=== PATIENT | female | born 1965 | race Caucasian/White ===

== ENCOUNTER 2017-10-29 06:09 | Outpatient (CLI) | payer OTHER ==
[~2017-10-29] VITALS: Ht 167.6 cm; Wt 113.6 kg
--- NOTE | ~2017-10-29 | HEMODYNAMI ---
PATIENT:ABI JEAN MEDICAL RECORD: [id number] : 67 LOCATION:[facility] ADMISSION DATE: 10/29/17 Generatedon:10/29/201710:46 Patient name: ABI JEAN Patient #: [id number] SSN: : 1965 Date of study: 10/29/2017 Page: Of Hemodynamic Procedure Report Patient Data Patient Demographics Procedure consent was obtained First Name: ABI Gender: Female Last Name: MIRANDA : 1965 Patient #: [id number] Age: 52 year(s) Race: Unknown Additional ID: [id number] Contact details Address: [facility] [address] State: [place] City: [place] Zip code: [address] Past Medical History Allergies Allergen Reaction Date Comments Reported Other allergy 10/29/2017 shellfish,wellbutrin. Admission Admission Data Admission Date: 10/29/2017 Admission Time: 6:09 Admit Source: Other Lab Results Lab Result Date: 10/29/2017 Lab Result Time: 6:50 Biochemistry Name Units Result Min Max BUN mg/dl 10 --(-*--)-- 7 18 Creatinine mg/dl 0.7 --(*---)-- 0.6 1.3 CBC Name Units Result Min Max Hematocrit % 41.1 -*(----)-- 42 54 Hemoglobin g/dl 13.7 --(*---)-- 13.5 17.5 Procedure Procedure Types Cath Procedure Diagnostic Procedure LHC LHC w/Coronaries Miscellaneous Procedures Moderate Sedation up to 15 minutes Procedure Description Procedure Date Procedure Date: 10/29/2017 Procedure Start Time: 8:18 Procedure End Time: 8:38 Procedure Staff Name Function Tom Zendejas RN Form Setter Supervisor Tahir Preciado RN Nurse Jay Cooley MD Performing Physician Denis Hernandez RT Scrub Denis Hernandez RT Monitor Procedure Data Cath Procedure Fluoroscopy Diagnostic fluoroscopy Total fluoroscopy Time: 2.1 time: 2.1 min min Diagnostic fluoroscopy Total fluoroscopy dose: 682 dose: 682 mGy mGy Contrast Material Contrast Material Type Amount (ml) Isovue 300 64 Entry Location Entry Primary Successful Side Size Upsize Upsize Entry Closure Guerrero ccessful Closure Location (Fr) 1 (Fr) 2 (Fr) Remarks Device Remarks Radial Right 6 Fr Mechanical artery Short Compression Estimated blood loss: 5 ml Diagnostic catheters Device Type Used For End Catheter Placement DIAGNOSTIC [place] 110cm 5 Procedure Fr catheter ([id number]) Procedure Complications No complications Procedure Medications Medication Administration Route Dosage Oxygen NC 2 l/min Lidocaine 2% added to field 20 Heparin Flush Bag added to field 2 bags (1000units/500ml NS) 0.9% NaCl I.V. 100 ml/hr Versed I.V. 1 mg Fentanyl I.V. 50 mcg Versed I.V. 1 mg Fentanyl I.V. 50 mcg Versed I.V. 1 mg Fentanyl I.V. 50 mcg Radial Cocktail I.A. 1 syringe (Verapomil 2mg/Nitro 400mcg/Heparin 1500units) Versed I.V. 1 mg Fentanyl I.V. 50 mcg Hemodynamics Rest HGB: 13.7 (g/dl) Heart Rate: 57 (bpm) Pressure Samples Time Site Value (mmHg) Purpose Heart Use Rate(bpm) 8:26 LV 148/-4,18 Snapshot 70 Gradients Valve Time Site Site Mean SEP/DFP Peak To Heart Use 1 2 (mmHg) (sec/min) Peak Rate (mmHg) (bpm) Aortic 8:27 LV AO 85 Snapshots Pre Cath Intra NCS Post Cath Vital Signs Time Heart Resp SPO2 etCO2 NIBP (mmHg) Rhythm Pain Sedation Rate (ipm) (%) (mmHg) Status Level (bpm) 8:06:58 56 15 98 33.4 177/97(151) NSR 0 (11) 10(A) , No pain 8:11:51 59 17 94 41 161/85(129) NSR 0 (11) 10(A) , No pain 8:16:38 66 16 97 34.2 151/87(116) NSR 0 (11) 9(A) , No pain 8:21:37 69 15 96 30.4 Measuring NSR 0 (11) 9(A) , No pain 8:22:09 67 15 98 33.5 134/95(119) NSR 0 (11) 9(A) , No pain 8:26:52 78 15 95 36.5 124/84(107) NSR 0 (11) 9(A) , No pain 8:31:33 78 16 95 37.3 136/90(123) NSR 0 (11) 9(A) , No pain 8:36:17 74 15 98 38 143/87(115) NSR 0 (11) 10(A) , No pain Medications Time Medication Route Dose Verified Delivered Reason Notes Effectiveness by by 8:08:57 Oxygen NC 2 l/min Jay Buffie used for Yasir Preciado RN procedure 8:09:04 Lidocaine 2% added 20ml Jay Jay for local to vial Yasir Cooley MD anesthetic field 8:09:12 Heparin Flush added 2 bags Jay Jay used for Bag to Yasir Cooley MD procedure (1000units/500ml field NS) 8:09:22 0.9% NaCl I.V. 100 Jay Buffie Per physician ml/hr Yasir Preciado RN 8:12:10 Versed I.V. 1 mg Jya Buffie for sedation Yasir Preciado RN 8:12:17 Fentanyl I.V. 50 mcg Jay Buffie for sedation Yasir Preciado RN 8:14:31 Versed I.V. 1 mg Jay Buffie for sedation Yasir Preciado RN 8:14:34 Fentanyl I.V. 50 mcg Jay Buffie for sedation Yasir Preciado RN 8:19:03 Versed I.V. 1 mg Jay Buffie for sedation Yasir Preciado RN 8:19:07 Fentanyl I.V. 50 mcg Jay Buffie for sedation Yasir Preciado RN 8:25:03 Radial Cocktail I.A. 1 Jay Buffie for (Verapomil syringe Yasir Preciado RN anticoagulation 2mg/Nitro 400mcg/Hepari 8:27:06 Versed I.V. 1 mg Jay Buffie for sedation Yasir Preciado RN 8:27:10 Fentanyl I.V. 50 mcg Jay Buffie for sedation Yasir Preciado RN Procedure Log Time Note 7:48:03 Informed consent obtained and on chart 7:48:20 Admit Source: Other 7:48:46 Diagnostic Cath status Elective 7:49:14 Tom Zendejas RN sent for patient. Start room use. 7:49:15 Time tracking: Regular hours 7:49:18 Plan of Care:Hemodynamics will remain stable., Cardiac rhythm will remain stable., Comfort level will be maintained., Respiratory function will remain adequate., Patient/ family verbilizes understanding of procedure., Procedure tolerated without complication., Recovers from procedure without complications.. 7:49:33 H&P Date Dictated: 10/07/2017 Within 30 days and on chart., H&P Addendum completed by physician on day of procedure. (MUST COMPLETE FOR ALL OUTPATIENTS). 7:56:31 Patient received from Pre/Post Procedure Room to CCL 1 Alert and oriented. Tansferred to table in Supine position. 7:56:33 Warm blankets applied, and bella hugger turned on for patient comfort. 7:56:34 Correct patient and procedure confirmed by team. 7:56:36 ECG and BP/O2 sat monitors applied to patient. 7:56:49 Pre-op teaching completed and patient verbalized understanding. 7:56:49 Pre-procedure instructions explained to patient. 7:56:50 Family in waiting room. 7:56:52 Patient NPO since Midnight. 7:57:30 Patient allergic to Other allergyshellfish,wellbutrin. 7:57:32 Is the patient allergic to Iodine/contrast media? Yes. 7:57:34 Was the patient premedicated? Yes 8:01:24 Is patient on blood thinner?No 8:01:26 Patient diabetic? No. 8:01:37 Patient not . Patient has had hysterectomy. 8:01:39 Previous problem with sedation/anesthesia? No ? 8:01:41 Snore? Yes 8:01:42 Sleep apnea? No 8:01:43 Opens mouth fully? Yes 8:01:43 Deviated septum? No 8:01:44 Sticks out tongue? Yes 8:01:46 Airway obstruction? No ? 8:01:47 Dentures? No ? 8:01:51 Modified Rm's test Ulnar < 7 seconds 8:01:53 Patient pain scale 0/10 ?. 8:02:02 IV patent on arrival in left hand with 0.9% NaCl at [facility]. 8:03:15 Lab Result : Hemoglobin 13.7 g/dl 8:03:15 Lab Result : Hematocrit 41.1 % 8:03:15 Lab Result : BUN 10 mg/dl 8:03:15 Lab Result : Creatinine 0.7 mg/dl 8:03:19 Lab results completed and on chart. 8:05:55 Vital chart was started 8:05:56 Baseline sample Acquired. 8:06:03 Baseline sample Acquired. 8:06:06 Rhythm: sinus rhythm 8:06:19 Full Disclosure recording started 8:07:21 Right Radial & Right Groin area was prepped with chlora-prep and draped in sterile fashion 8:07:22 Alarms reviewed by R. N. 8:07:23 Sharps counted by scrub and verified by R.N. 8:07:25 Use device set Radial Dx or PCI 8:07:29 MBrace Wrist Support ([id number]) opened to sterile field. 8:07:29 NEEDLE Cook 21G 4cm Radial ([id number]) opened to sterile field. 8:07:30 Tegaderm 4 x 4 (1626W) opened to sterile field. 8:07:31 ACIST Hand Control (62014) opened to sterile field. 8:07:31 ACIST Manifold (48234) opened to sterile field. 8:07:35 ACIST Syringe (74992) opened to sterile field. 8:07:36 Bag Decanter (2002S) opened to sterile field. 8:07:36 Medline Cath Pack ([id number]) opened to sterile field. 8:07:38 DIAGNOSTIC WIRE .035 260cm J wire (953005) opened to sterile field. 8:07:38 SHEATH 6FR Slender ([id number]) opened to sterile field. 8:08:20 Physician arrived 8:08:22 --------ALL STOP TIME OUT------ 8:08:23 Final Timeout: patient, procedure, and site verified with staff and physician. All members of the team are in agreement. 8:08:26 Right Radial & Right Groin site verified by team. 8:08:28 Physical assessment completed. ASA score P 2 - A patient with mild systemic disease as per Jay Cooley MD. 8:08:31 Sedation plan: IV Moderate Sedation Medication:Versed, Fentanyl 8:08:57 Oxygen 2 l/min NC was administered by Tahir Preciado RN; used for procedure; 8:09:04 Lidocaine 2% 20ml vial added to field was administered by Jay Cooley MD; for local anesthetic; 8:09:12 Heparin Flush Bag (1000units/500ml NS) 2 bags added to field was administered by Jay Cooley MD; used for procedure; 8::22 0.9% NaCl 100 ml/hr I.V. was administered by Tahir Preciado RN; Per physician; 8:12:10 Versed 1 mg I.V. was administered by Tahir Preciado RN; for sedation; 8:12:17 Fentanyl 50 mcg I.V. was administered by Tahir Preciado RN; for sedation; 8:12:38 Zero performed for pressure channel P1 8:12:41 Zero performed for pressure channel P1 8:12:49 Zero performed for pressure channel P1 8:14:31 Versed 1 mg I.V. was administered by Tahir Preciado RN; for sedation; 8:14:34 Fentanyl 50 mcg I.V. was administered by Tahir Preciado RN; for sedation; 8:18:30 Procedure started. 8:18:34 Local anesthetic to right radial artery with Lidocaine 2% by Jay Cooley MD.INITIAL ACCESS ONLY 8:18:53 A 6 Fr Short sheath was inserted into the Right Radial artery 8:19:03 Versed 1 mg I.V. was administered by Tahir Preciado RN; for sedation; 8:19:07 Fentanyl 50 mcg I.V. was administered by Tahir Preciado RN; for sedation; 8:25:03 Radial Cocktail (Verapomil 2mg/Nitro 400mcg/Heparin 1500units) 1 syringe I.A. was administered by Tahir Preciado RN; for anticoagulation; 8:25:35 A DIAGNOSTIC [place] 110cm 5 Fr catheter ([id number]) was advanced over the wire and used for Procedure. 8:26:40 LV gram done using PIERCE 8::41 Injector settings: Ml/sec: 5, Volume: 15, 8:26:50 EF : 55 % 8:27:06 Versed 1 mg I.V. was administered by Tahir Preciado RN; for sedation; 8:27:10 Fentanyl 50 mcg I.V. was administered by Tahir Preciado RN; for sedation; 8:27:44 LCA angiography performed. 8:29:39 RCA angiography performed. 8:30:50 Catheter removed. 8:30:56 TR BAND Standard ([id number]) opened to sterile field. 8:33:19 Sheath removed intact; hemostasis achieved with Mechanical Compression to the Right Radial artery. 8:33:21 Procedure ended.(Physican Out) 8:34:08 Fluoroscopy time 02.10 minutes. 8:34:12 Fluoroscopy dose: 682 mGy 8:34:12 Flurop Dose total: 682 8:34:15 Contrast amount:Isovue 300 64ml. 8:34:17 Sharps counted by scrub and verified by R.N. 8:34:19 TR band inflated with 10cc of air. 8:34:31 Insertion/operative site no bleeding no hematoma. 8:34:54 Post right radial artery:stable, soft, clean and dry 8:34:56 Post Procedure Pulses reassessed and unchanged 8:34:58 Post-procedure physical assessment completed. ASA score P 2 - A patient with mild systemic disease as per Jay Cooley MD. 8:35:00 Post procedure rhythm: unchanged. 8:35:03 Estimated blood loss: 5 ml 8:35:04 Patient needs reinforcement of post procedure teaching. 8:35:04 Post procedure instruction explained to patient.Patient verbalizes understanding. 8:35:22 Procedure type changed to Cath procedure, Diagnostic procedure, LHC, LHC w/Coronaries, Miscellaneous Procedures, Moderate Sedation up to 15 minutes 8:37:52 Procedure and supply charges have been captured, reviewed, submitted and are correct. 8:37:55 Procedure Complication : No complications 8:37:57 Vital chart was stopped 8:37:58 See physician's report for complete and final results. 8:37:59 Report given to Pre/Post Procedure Room. 8:38:01 Patient transfered to Pre/Post Procedure Room with Stretcher. 8:38:03 Full Disclosure recording stopped 8:38:03 Procedure ended. 8:38:08 End room use (Document Last) Device Usage Item Name Manufacture Quantity Catalog Hospital Part Current Minima l Lot# / Number Charge Number Stock Stock Serial# Code NEEDLE Cook Cook Medical 1 [id number] [id number] 280769 5 21G 4cm Radial ([id number]) MBrace Wrist Advanced 1 140-0250-00 701552 16580 167085 5 Support Vascular ([id number]) Dynamics Tegaderm 4 x 3M 1 1626W 981173 783605 581648 5 4 (1626W) ACIST Acist 1 55203 012406 214568 616108 5 Manifold Medical (80813) Systems Inc ACIST Hand Acist 1 54515 336410 470349 217379 5 Control Medical (89063) Systems Inc ACIST Acist 1 61287 317173 397574 342512 20 Syringe Medical (18533) Systems Inc Medline Cath Cardinal 1 [id number] 692995 45324 223816 5 Pack Health ([id number]) Bag Decanter Microtek 1 2001S 304605 72252 014614 5 (2001S) Medical Inc. SHEATH 6FR Terumo 1 [id number] 690395 987545 638035 40 Slender ([id number]) DIAGNOSTIC [facility] [place] 1 963229 835321 321842 746843 30 WIRE .035 260cm J wire (469934) DIAGNOSTIC Terumo 1 40-4037 602184 394139 538444 5 [place] 110cm 5 Fr catheter (461131) TR BAND Terumo 1 [id number] 089073 581314 363582 40 Standard ([id number]) Signature Audit [place] Stage Time Signature Unsigned Intra-Procedure 10/29/2017 Denis Hernandez 8:39:03 AM RT(R) Signatures Monitor : Denis Hernandez RT Signature : Date : Time : [place] [id number] [place] [address]
[2017-10-29] MEDS ORDERED: BUSPAR5 MG PO (06:53)
[2017-10-29] MEDS ORDERED: PREDNISONE20 MG PO (06:53)
[2017-10-29] MEDS ORDERED: TAMOXIFEN CITRA20 MG PO (06:54)
[2017-10-29] MEDS ORDERED: ZOFRAN4 MG PO (06:54)
[2017-10-29] MEDS ORDERED: LEVOTHYROXINE175 MCG PO (06:54)
[2017-10-29] MEDS ORDERED: EFFEXOR XR75 MG PO (06:55)
[2017-10-29] MEDS ORDERED: ATIVAN1 MG PO (06:55)
[2017-10-29] MEDS ORDERED: PROAIR HFA8.5 GM INH (06:55)
[2017-10-29] MEDS ORDERED: GABAPENTIN100 MG PO (06:55)
[2017-10-29] MEDS ORDERED: ZEBETA5 MG PO (06:56)
[2017-10-29] MEDS ORDERED: HYDROCODONE-APA1 TAB PO (06:56)
[2017-10-29] MEDS ORDERED: MAXALT MLT10 MG/TAB PO (06:56)
[2017-10-29 07:08] VITALS: BP 136/53; Ht 167.6 cm; Wt 113.6 kg
[2017-10-29 07:13] LABS: HEMATOCRIT 41.1 % (36.0-48.0); HEMOGLOBIN 13.7 g/dL (12-16); MCH 29.5 pg (26.0-34.0); MCHC 33.3 g/dL (31.0-37.0); MCV 88.4 fL (80.0-100.0); MEAN PLATELET VOLUME 10.2 fL (7.4-10.4); PLATELET COUNT 182 10x3/uL (130-400); RBC 4.65 10x6/uL (4.00-5.40); RDW 12.9 % (11.5-14.5); WBC 2.4 10x3/uL (4.8-10.8)
[2017-10-29 07:42] LABS: CHLORIDE - SERUM 111 mmol/L (98-107)
[2017-10-29 07:45] LABS: CALC OSMOLALITY 290 mosm/kg (275-300); CALCIUM 8.8 mg/dL (8.5-10.1); CARBON DIOXIDE 22.8 mmol/L (21.0-32.0); CREATININE - SERUM 0.7 mg/dL (0.6-1.3); GLUCOSE 156 mg/dL (74-106); POTASSIUM - SERUM 4.4 mmol/L (3.5-5.1); SODIUM 145 mmol/L (136-145); UREA NITROGEN 10 mg/dL (7-18); eGFR NON AFRICAN AMERICAN > 90 mL/min (90-120)
[2017-10-29 07:58] LABS: BASOPHILS 1 % (0-2); LYMPHOCYTES 23 % (15-50); MONOCYTES 4 % (2-11); NEUTROPHILS 68 % (40-80); PLATELET ESTIMATE NORMAL
== END 2017-10-29 11:00 | disposition home or self-care (01) ==
LOC: D.CATH 06:09
PROVIDERS: Internal Medicine Cardiovascular Disease
DX: I20.9 Angina pectoris, unspecified (principal); R94.39 Abnormal result of other cardiovascular function study; Z01.812 Encounter for preprocedural laboratory examination

== ENCOUNTER 2018-05-10 18:13 | Emergency (ER) | payer OTHER ==
[~2018-05-10] VITALS: Ht 170.2 cm; Wt 122.7 kg
[~2018-05-10 18:13] MED LIST: ATIVAN1 MG PO; BUSPAR5 MG PO; EFFEXOR XR75 MG PO; GABAPENTIN100 MG PO; HYDROCODONE-APA1 TAB PO; LEVOTHYROXINE175 MCG PO; MAXALT MLT10 MG/TAB PO; PREDNISONE20 MG PO; PROAIR HFA8.5 GM INH; TAMOXIFEN CITRA20 MG PO; ZEBETA5 MG PO; ZOFRAN4 MG PO
[2018-05-10 18:18] VITALS: Ht 170.2 cm; Wt 122.7 kg
[2018-05-10] MEDS ORDERED: PREDNISONE20 MG PO (19:48)
[2018-05-10] MEDS ORDERED: VIBRAMYCIN 100100 MG PO (20:07)
[2018-05-10 20:26] VITALS: BP 132/85
== END 2018-05-10 20:27 | disposition home or self-care (01) ==
LOC: D.ER 18:13
DX: J45.901 Unspecified asthma with (acute) exacerbation (principal); E07.9 Disorder of thyroid, unspecified

== ENCOUNTER 2018-06-04 12:17 | Emergency (ER) | payer OTHER ==
[~2018-06-04] VITALS: Ht 170.2 cm; Wt 115.7 kg
[~2018-06-04 12:17] MED LIST changes: +VIBRAMYCIN 100100 MG PO
[2018-06-04 12:36] VITALS: Ht 170.2 cm; Wt 115.7 kg
[2018-06-04] MEDS ORDERED: K-TAB10 MEQ PO (12:43)
[2018-06-04 13:10] LABS: BASOPHILS 0.4 % (0-2); EOSINOPHILS 1.7 % (0-7); HEMOGLOBIN 13.5 g/dL (12-16); IMMATURE GRANULOCYTES 0.2 % (0-5); LYMPHOCYTES 29.4 % (15-50); MCH 29.8 pg (26.0-34.0); MCHC 33.8 g/dL (31.0-37.0); MCV 88.3 fL (80.0-100.0); MEAN PLATELET VOLUME 9.9 fL (7.4-10.4); MONOCYTES 9.8 % (2-11); NEUTROPHILS 58.5 % (40-80); PLATELET COUNT 179 10x3/uL (130-400); RBC 4.53 10x6/uL (4.00-5.40); RDW 13.1 % (11.5-14.5); WBC 8.3 10x3/uL (4.8-10.8)
[2018-06-04 13:31] LABS: ALBUMIN 3.1 g/dL (3.4-5.0); ANION GAP 13.8 mmol/L (8-16); BILIRUBIN - TOTAL 0.45 mg/dL (0.2-1.3); CALCIUM 8.1 mg/dL (8.5-10.1); CARBON DIOXIDE 25.3 mmol/L (21.0-32.0); CREATININE - SERUM 0.9 mg/dL (0.6-1.3); POTASSIUM - SERUM 4.1 mmol/L (3.5-5.1); PROTEIN - SERUM 6.7 g/dL (6.4-8.2)
[2018-06-04] MEDS ORDERED: ZPAK PO (15:01)
[2018-06-04 16:11] VITALS: BP 142/86
== END 2018-06-04 16:14 | disposition home or self-care (01) ==
LOC: D.ER 12:17
PROVIDERS: Internal Medicine Endocrinology, Diabetes & Metabolism
DX: R07.81 Pleurodynia (principal); R50.9 Fever, unspecified; R05 Cough; I10 Essential (primary) hypertension